=== PATIENT | male | born 1990 | race Caucasian/White ===

== ENCOUNTER 2018-03-24 07:29 | Inpatient (IN) | payer OTHER, SELFPAY ==
[2018-03-24] MEDS ORDERED: Ketorolac Tromethamine 30 MG/ML VIAL ONE ×2 (08:40→15:10)
[2018-03-24] MEDS ORDERED: Adacel (T-DAP) 0.5 ML VIAL ONE (08:41)
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
[2018-03-24 10:07] LABS: #Basophils 0.1 thou/uL (0.0-0.2); #Lymphocytes 0.8 thou/uL (1.20-3.40); #Monocytes 0.9 thou/uL (0.11-0.59); #Neutrophils 11.3 thou/uL (1.40-6.50); %Basophils 0.4 % (0.0-1.0); %Eosinophils 0.3 % (0.0-10.0); %Lymphocytes 6.3 % (21.0-51.0); %Monocytes 7.1 % (0.0-10.0); %Neutrophils 85.9 % (42.0-75.0); Hemoglobin 12.8 g/dL (14.0-18.0); Mean Corpuscular HGB CONC 32.9 g/dL (32.0-36.0); Mean Corpuscular Hemoglobin 28.4 pg (27.0-31.0); Mean Corpuscular Volume 86.3 fl (80.0-94.0); Mean Platelet Volume 6.7 fL (7.4-10.4); Platelet Count 389 thou/uL (130-400); RBC Distribution Width 12.2 % (11.5-14.5); Red Blood Cell (RBC) Count 4.49 mill/uL (4.70-6.10); White Blood Cell (WBC) Count 13.2 thou/uL (4.8-10.8)
[2018-03-24 10:12] LABS: INR-International Normal Ratio 1.1; PTT 27.7 SEC (22.9-36.1); Prothrombin Time 13.8 SEC (12.0-14.7)
[2018-03-24 10:29] LABS: ALT (SGPT) 42 U/L (8-55); AST (SGOT) 51 U/L (5-34); Albumin 3.8 g/dL (3.5-5.0); Alkaline Phosphatase 59 U/L (40-150); Anion Gap 15 mmol/L (10-20); BUN (Urea Nitrogen) 14 mg/dL (8.9-20.6); Bilirubin, Total 0.4 mg/dL (0.2-1.2); Calc. Creatinine Clearance 0 mL/min (70-130); Calcium 8.9 mg/dL (7.8-10.44); Carbon Dioxide 24 mmol/L (22-29); Chloride 103 mmol/L (98-107); Estimated GFR-MDRD 74; Glucose 144 mg/dL (70-105); Lipase 22 U/L (8-78); Potassium 3.6 mmol/L (3.5-5.1); Protein, Total 6.8 g/dL (6.0-8.3); Sodium 138 mmol/L (136-145)
[2018-03-24 10:51] LABS: Bilirubin Negative (Negative); Blood, Urine Large (Negative); Clarity CLEAR (Clear); Glucose, Urine (Dipstick) Negative (Negative); Leukocyte Negative (Negative); Nitrite Negative (Negative); Protein, Urine (Dipstick) Trace mg/dL (Neg-Trace)
[2018-03-24] MEDS ORDERED: Ondansetron HCl/PF 4 MG/2 ML Vial IVP PRN ×2 (10:52→13:51)
[2018-03-24] MEDS ORDERED: Fentanyl 250 MCG/5 ML VIAL ONE (10:52)
[2018-03-24] MEDS ORDERED: Midazolam HCl 2 mg/2 ml Vial ONE (10:52)
[2018-03-24] MEDS ORDERED: Dextrose 5% in Water 1,000 ML IV PRN (10:52)
[2018-03-24] MEDS ORDERED: Dextrose 50% Abboject 50 ML SYRINGE SLOW IVP PRN (10:52)
[2018-03-24 10:53] LABS: Bacteria/HPF None Seen HPF (None Seen); Pathc Cast-AUWi Flag 1.16 (0-2.49); RBC/HPF GREATER THAN 50-TNTC HPF (0-3); Squamous Epithelial 0-3 HPF (0-3); WBC/HPF 0-3 HPF (0-3)
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
[2018-03-24 10:59] LABS: Specific Gravity, Urine 1.057 (1.002-1.036)
[2018-03-24] MEDS ORDERED: Sodium Chloride 0.9% 1,000 ML IV SCH (11:00)
[2018-03-24] MEDS ORDERED: Heparin 10,000 UNITS/1 ML VIAL 30,000 UNITS in Sodium Chloride 0.9% 1,000 ML IVPB SCH (11:00)
[2018-03-24 11:06] LABS: Hyaline Casts/LPF 4-6 HYALINE CAST LPF (0-3 Hyaline)
[2018-03-24 11:15] LABS: Medtox Reader # READER 1
[2018-03-24] MEDS ORDERED: Ketamine 50 MG/ML VIAL ONE (11:15)
[2018-03-24 11:16] LABS: Amphetamine Not Detected (NotDetected); Barbiturates Screen Not Detected (NotDetected); Benzodiazepine Screen Detected (NotDetected); Cocaine Metabolite Screen Detected (NotDetected); Methadone Not Detected (NotDetected); Methamphetamine Not Detected (NotDetected); Opiate Screen Not Detected (NotDetected); Oxycodone Screen Not Detected (NotDetected); Phencyclidine (PCP) Not Detected (NotDetected); THC/Cannabinoid Screen Not Detected (NotDetected); Tricyclic Screen Not Detected (NotDetected)
[2018-03-24 11:17] LABS: Medtox Control Line Valid? VALID (VALID)
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
[2018-03-24] MEDS ORDERED: ISOVUE-370 76%-LOCM 1 ML ONE (11:39)
[2018-03-24] MEDS ORDERED: Piperacillin/Tazobactam 3.375 GM VIAL ONE (11:40)
[2018-03-24] MEDS ORDERED: Heparin 10,000 UNITS/1 ML VIAL ONE (12:20)
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
[2018-03-24] MEDS ORDERED: Fentanyl 100 MCG/2 ML VIAL ONE (14:15)
[2018-03-24 14:35] LABS: Amphetamine Not Detected (NotDetected); Barbiturates Screen Not Detected (NotDetected); Benzodiazepine Screen Detected (NotDetected); Cocaine Metabolite Screen Detected (NotDetected); Medtox Reader # READER 1; Methadone Not Detected (NotDetected); Methamphetamine Detected (NotDetected); Opiate Screen Not Detected (NotDetected); Phencyclidine (PCP) Not Detected (NotDetected); THC/Cannabinoid Screen Not Detected (NotDetected); Tricyclic Screen Not Detected (NotDetected)
[2018-03-24 14:36] LABS: Medtox Control Line Valid? VALID (VALID); Oxycodone Screen Not Detected (NotDetected)
[2018-03-24] MEDS ORDERED: Succinylcholine Chloride 20 MG/ML 10 ml SYRINGE FS ONE (15:10)
[2018-03-24] MEDS ORDERED: Glycopyrrolate 0.2 MG/ML 5 ML SYRINGE ONE (15:10)
[2018-03-24] MEDS ORDERED: Ondansetron HCl/PF 4 MG/2 ML Vial ONE (15:10)
[2018-03-24] MEDS ORDERED: Dexamethasone 20 MG/5 ML VIAL ONE (15:10)
[2018-03-24] MEDS ORDERED: Lidocaine 1% PF 5 ML VIAL ONE (15:10)
[2018-03-24] MEDS ORDERED: Buprenorphine 8mg/Naloxone 2mg per 1 FILM PO SCH (15:45)
[2018-03-24] MEDS: Acetaminophen 1,000 MG in Premix Bag 1 BAG IVPB SCH ×3 (15:53→23:18)
[2018-03-24] MEDS: Ketorolac Tromethamine 30 MG/ML VIAL IVP SCH ×3 (15:53→23:18)
[2018-03-24 16:08] LABS: #Lymphocytes 0.8 thou/uL (1.20-3.40); #Monocytes 0.6 thou/uL (0.11-0.59); #Neutrophils 15.8 thou/uL (1.40-6.50); %Basophils 0.1 % (0.0-1.0); %Eosinophils 0.1 % (0.0-10.0); %Lymphocytes 4.4 % (21.0-51.0); %Monocytes 3.3 % (0.0-10.0); %Neutrophils 92.1 % (42.0-75.0); Hemoglobin 13.4 g/dL (14.0-18.0); Mean Corpuscular HGB CONC 34.5 g/dL (32.0-36.0); Mean Corpuscular Hemoglobin 29.6 pg (27.0-31.0); Mean Corpuscular Volume 85.9 fl (80.0-94.0); Mean Platelet Volume 6.4 fL (7.4-10.4); Platelet Count 365 thou/uL (130-400); RBC Distribution Width 12.3 % (11.5-14.5); Red Blood Cell (RBC) Count 4.54 mill/uL (4.70-6.10); White Blood Cell (WBC) Count 17.2 thou/uL (4.8-10.8)
[2018-03-24] MEDS: Lactated Ringer's 1,000 ML IV SCH ×2 (18:27→19:59)
[2018-03-24] MEDS: Famotidine/PF 20 mg/2ml Vial SLOW IVP SCH (20:01)
[2018-03-24 23:33] LABS: Hemoglobin 11.9 g/dL (14.0-18.0)
[2018-03-25 04:03] LABS: #Lymphocytes 1.1 thou/uL (1.20-3.40); #Monocytes 1.4 thou/uL (0.11-0.59); %Eosinophils 0.1 % (0.0-10.0); %Lymphocytes 7.1 % (21.0-51.0); %Neutrophils 83.9 % (42.0-75.0); Hemoglobin 11.4 g/dL (14.0-18.0); Mean Corpuscular HGB CONC 33.5 g/dL (32.0-36.0); Mean Corpuscular Volume 86.7 fl (80.0-94.0); Mean Platelet Volume 6.9 fL (7.4-10.4); Platelet Count 323 thou/uL (130-400); RBC Distribution Width 12.3 % (11.5-14.5); Red Blood Cell (RBC) Count 3.93 mill/uL (4.70-6.10); White Blood Cell (WBC) Count 15.5 thou/uL (4.8-10.8)
[2018-03-25 04:22] LABS: ALT (SGPT) 35 U/L (8-55); AST (SGOT) 38 U/L (5-34); Albumin 3.4 g/dL (3.5-5.0); Alkaline Phosphatase 49 U/L (40-150); Anion Gap 9 mmol/L (10-20); BUN (Urea Nitrogen) 13 mg/dL (8.9-20.6); Bilirubin, Total 0.8 mg/dL (0.2-1.2); Calc. Creatinine Clearance 144 mL/min (70-130); Calcium 8.9 mg/dL (7.8-10.44); Carbon Dioxide 28 mmol/L (22-29); Chloride 104 mmol/L (98-107); Estimated GFR-MDRD Greater than 90; Globulin 2.2 g/dL (2.4-3.5); Glucose 169 mg/dL (70-105); Potassium 4.4 mmol/L (3.5-5.1); Protein, Total 5.6 g/dL (6.0-8.3); Sodium 137 mmol/L (136-145)
[2018-03-25] MEDS: Ketorolac Tromethamine 30 MG/ML VIAL IVP SCH ×3 (05:29→17:09)
[2018-03-25] MEDS: Lactated Ringer's 1,000 ML IV SCH (05:29)
[2018-03-25] MEDS: Acetaminophen 1,000 MG in Premix Bag 1 BAG IVPB SCH ×2 (05:30→13:09)
[2018-03-25 07:26] LABS: Hemoglobin 12.4 g/dL (14.0-18.0)
[2018-03-25] MEDS ORDERED: traMADol HCl 50 MG TAB PO PRN (08:40)
[2018-03-25] MEDS ORDERED: Buprenorphine 8mg/Naloxone 2mg per 1 FILM PO SCH ×2 (09:00→21:00)
[2018-03-25] MEDS ORDERED: Famotidine 20 MG TAB PO SCH ×2 (10:10→21:00)
[2018-03-25] MEDS: traMADol HCl 50 MG TAB PO SCH ×2 (10:55→17:09)
[2018-03-25] MEDS: Famotidine/PF 20 mg/2ml Vial SLOW IVP SCH (10:56)
[2018-03-25] MEDS ORDERED: Buprenorphine 8mg/Naloxone 2mg per 1 FILM SL SCH ×4 (11:00→21:00)
[2018-03-25] MEDS ORDERED: Acetaminophen 500 MG TAB PO SCH (13:45)
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
[2018-03-25 15:37] VITALS: BP 139/81; TEMP 98.8
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
== END 2018-03-25 17:18 | disposition left against medical advice (07) | DRG 799 ==
LOC: ERS 07:29 → SURG B 14:59
PROVIDERS: ADMIT Surgery; ATTEND Surgery
PROC: 07QP0ZZ Repair Spleen, Open Approach (ICD-10-PCS; principal; 2018-03-24)
PROC: 0D9W0ZZ Drainage of Peritoneum, Open Approach (ICD-10-PCS; 2018-03-24)
DX: S36.031A Moderate laceration of spleen, initial encounter (principal); K65.9 Peritonitis, unspecified; D62 Acute posthemorrhagic anemia; F11.20 Opioid dependence, uncomplicated; Z53.21 Procedure and treatment not carried out due to patient leaving prior to being seen by health care provider; V89.2XXA Person injured in unspecified motor-vehicle accident, traffic, initial encounter; R40.2410 Glasgow coma scale score 13-15, unspecified time
CPT/HCPCS: 36415; 70450; 71046; 71260; 72125; 74177; 80053; 80306; 81003; 81015; 83605; 83690; 85025; 85610; 85730; 86850; 86900; 86901; 90471; 90715; 93005; 94640; C1781; G0390; G8978-GP-CJ; G8979-GP-CJ; G8980-GP-CJ; J0131; J1100; J1644; J1885; J2001; J2250; J2405; J2543; J3010; J7050; J7620

== ENCOUNTER 2018-04-01 11:38 | Emergency (ER) | payer SELFPAY ==
[2018-04-01 12:18] LABS: #Basophils 0.1 thou/uL (0.0-0.2); #Eosinphils 0.2 thou/uL (0.0-0.7); #Lymphocytes 0.7 thou/uL (1.20-3.40); #Monocytes 0.8 thou/uL (0.11-0.59); #Neutrophils 7.3 thou/uL (1.40-6.50); %Basophils 0.6 % (0.0-1.0); %Eosinophils 1.9 % (0.0-10.0); %Monocytes 9.2 % (0.0-10.0); %Neutrophils 80.2 % (42.0-75.0); Hemoglobin 11.1 g/dL (14.0-18.0); Mean Corpuscular HGB CONC 34.2 g/dL (32.0-36.0); Mean Corpuscular Hemoglobin 28.8 pg (27.0-31.0); Mean Corpuscular Volume 84.3 fl (80.0-94.0); Mean Platelet Volume 6.1 fL (7.4-10.4); Platelet Count 485 thou/uL (130-400); RBC Distribution Width 11.8 % (11.5-14.5); Red Blood Cell (RBC) Count 3.84 mill/uL (4.70-6.10)
[2018-04-01 12:25] LABS: Prothrombin Time 12.9 SEC (12.0-14.7)
[2018-04-01 12:44] LABS: ALT (SGPT) 27 U/L (8-55); AST (SGOT) 28 U/L (5-34); Albumin 4.2 g/dL (3.5-5.0); Alkaline Phosphatase 62 U/L (40-150); Anion Gap 13 mmol/L (10-20); BUN (Urea Nitrogen) 14 mg/dL (8.9-20.6); Bilirubin, Total 0.9 mg/dL (0.2-1.2); Calc. Creatinine Clearance 0 mL/min (70-130); Calcium 9.8 mg/dL (7.8-10.44); Carbon Dioxide 31 mmol/L (22-29); Chloride 99 mmol/L (98-107); Estimated GFR-MDRD 81; Globulin 3.5 g/dL (2.4-3.5); Glucose 116 mg/dL (70-105); Lipase 9 U/L (8-78); Protein, Total 7.7 g/dL (6.0-8.3); Sodium 139 mmol/L (136-145)
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
== END 2018-04-01 13:30 | disposition home or self-care (01) ==
LOC: ERS 11:38
DX: S20.212A Contusion of left front wall of thorax, initial encounter (principal); K59.00 Constipation, unspecified; G89.18 Other acute postprocedural pain; R10.9 Unspecified abdominal pain; V89.2XXA Person injured in unspecified motor-vehicle accident, traffic, initial encounter
CPT/HCPCS: 71046; 80053; 83690; 85025; 85610; 85730; 86850; 86900; 86901; 93005

== ENCOUNTER 2018-05-20 16:36 | Emergency (ER) | payer SELFPAY ==
[2018-05-20 17:26] LABS: Bacteria/HPF None Seen HPF (None Seen); Bilirubin Negative (Negative); Blood, Urine Trace (Negative); Glucose, Urine (Dipstick) Negative (Negative); Hyaline Casts/LPF 0-3 HYALINE CAST LPF (0-3 Hyaline); Leukocyte Small (Negative); Nitrite Negative (Negative); Protein, Urine (Dipstick) Negative (Neg-Trace); Specific Gravity, Urine 1.025 (1.005-1.030); Squamous Epithelial None Seen HPF (0-3); Urobilinogen 0.2 mg/dL (0.2-1.0); pH, Urine 6.5 (5.0-9.0)
[2018-05-20 17:28] LABS: Clarity Cloudy (Clear)
[2018-05-20 17:42] LABS: Crystals/HPF None Seen HPF (Negative)
[2018-05-20] MEDS ORDERED: Lidocaine 1% PF 5 ML VIAL ONE (20:05)
[2018-05-20] MEDS ORDERED: cefTRIAXone\\ROCEPHIN 250 MG VIAL ONE (20:05)
[2018-05-20] MEDS ORDERED: Azithromycin 500 MG VIAL ONE (20:05)
[2018-05-20] MEDS ORDERED: Azithromycin 250 MG TAB ONE (20:06)
[2018-05-20 21:12] LABS: HIV (1/2) Antibody/Antigen Non-Reactive (NonReactive); HIV 1/2 INDEX 0.07 S/CO (<1.00)
[2018-05-20 21:16] LABS: Syphilis Antibody Nonreactive (Nonreactive); Syphilis Antibody Index 0.06 S/CO (<1.00 Non-Reactive)
[2018-05-24 23:07] LABS: Chlamydia by PCR Not Detected (NotDetected); GC by PCR DETECTED (NotDetected)
== END 2018-05-20 20:28 | disposition home or self-care (01) ==
LOC: ERS 16:36
DX: R30.0 Dysuria (principal); Z72.51 High risk heterosexual behavior
CPT/HCPCS: 36415; 81003; 81015; 86780; 87086; 87389; 87491; 87591; 96372; J0456; J0696; J2001